=== PATIENT | male | born 1950 | race Native Hawaiian/Other Pacific Islander ===

== ENCOUNTER 2020-09-13 18:44 | Emergency (ER) | payer OTHER ==
[~2020-09-13] VITALS: Ht 182.9 cm; Wt 66.2 kg
[2020-09-13 18:45] VITALS: BP 139/72; TEMP 97.5
[2020-09-13 19:34] LABS: PLATELET COUNT 340 K/uL (142-355)
[2020-09-13 19:43] LABS: POTASSIUM 4.5 mmol/L (3.6-5.2)
[2020-09-14] MEDS ORDERED: CVS STOOL SOFT100 MG PO (14:56)
[2020-09-14] MEDS ORDERED: HYDRALAZINE10 MG PO (14:57)
[2020-09-14] MEDS ORDERED: HYDR25TA60 PO (14:58)
[2020-09-14] MEDS ORDERED: HYDROCODONE BIT1 TA1 PO (14:58)
[2020-09-14] MEDS ORDERED: MULTIVITAMIN AD1 TA2 PO (14:59)
[2020-09-14] MEDS ORDERED: VITAMIN D1000 UNIT PO (15:00)
[2020-09-14] MEDS ORDERED: SODIUM BICAR650 MG PO (15:00)
[2020-09-14] MEDS ORDERED: AMLODIPINE BESYLATE PO (15:01)
[2020-09-14] MEDS ORDERED: ASPIRIN 81 LOW81 MG PO (15:02)
[2020-09-14] MEDS ORDERED: LORA0.5T17 PO (15:05)
== END 2020-09-13 22:19 | disposition other institution (70) ==
LOC: ED 18:44
PROVIDERS: Emergency Medicine Emergency Medical Services
DX: R46.89 Other symptoms and signs involving appearance and behavior (principal); I10 Essential (primary) hypertension; Z11.52 Encounter for screening for COVID-19; Z04.6 Encounter for general psychiatric examination, requested by authority; F17.210 Nicotine dependence, cigarettes, uncomplicated
CPT/HCPCS: 36415; 80053; 85027; 87635; 93005; 99283; U0003

== ENCOUNTER 2020-11-15 16:34 | Emergency (ER) | payer OTHER ==
[~2020-11-15] VITALS: Ht 167.6 cm; Wt 64.0 kg
[~2020-11-15 16:34] MED LIST: AMLODIPINE BESYLATE PO; ASPIRIN 81 LOW81 MG PO; CVS STOOL SOFT100 MG PO; DONE5TAB PO; ESCI10TA PO; HYDR25TA60 PO; HYDRALAZINE10 MG PO; HYDROCODONE BIT1 TA1 PO; LORA0.5T17 PO; MEMA5TAB PO; MULTIVITAMIN AD1 TA2 PO; RISP0.25 PO; SODIUM BICAR650 MG PO; VITAMIN D1000 UNIT PO
[2020-11-15 17:06] LABS: POTASSIUM 4.2 mmol/L (3.6-5.2)
[2020-11-15 17:09] LABS: PLATELET COUNT 270 K/uL (142-355)
[2020-11-15 18:00] VITALS: BP 168/96; TEMP 98
== END 2020-11-15 18:00 | disposition still patient (30) ==
LOC: ED 16:34
PROVIDERS: Emergency Medicine
DX: F03.90 Unspecified dementia, unspecified severity, without behavioral disturbance, psychotic disturbance, mood disturbance, and anxiety (principal); R62.7 Adult failure to thrive; N18.9 Chronic kidney disease, unspecified; Z11.52 Encounter for screening for COVID-19; Z04.6 Encounter for general psychiatric examination, requested by authority
CPT/HCPCS: 80053; 85027; 87635; 93005; 99283; U0003